=== PATIENT | female | born 1970 | race Two or more races ===

== ENCOUNTER 2019-06-07 17:43 | Emergency (ER) | payer BC, OTHER ==
[~2019-06-07] VITALS: Ht 170.2 cm; Wt 83.9 kg
[2019-06-07 18:13] VITALS: BP 115/73
[2019-06-07] MEDS ORDERED: ACETAMINOPHEN 325 MG TABLET PO ONE (19:00)
[2019-06-07] MEDS ORDERED: IBUPROFEN 600 MG TABLET PO ONE ×2 (19:00→19:24)
[2019-06-07] MEDS ORDERED: ACETAMINOPHEN 325 MG TABLET ONE (19:24)
== END 2019-06-07 20:33 | disposition home or self-care (01) ==
LOC: ER 17:50
DX: M79.651 Pain in right thigh (principal); M54.5 Low back pain
CPT/HCPCS: 72170; 73502; 99283; A6403

== ENCOUNTER 2019-12-06 09:57 | Emergency (ER) | payer BC, OTHER ==
[~2019-12-06] VITALS: Ht 175.3 cm; Wt 77.1 kg
[2019-12-06 10:00] VITALS: BP 140/89
== END 2019-12-06 10:43 | disposition home or self-care (01) ==
LOC: ER 10:07
DX: J02.8 Acute pharyngitis due to other specified organisms (principal); R05 Cough; Z20.828 Contact with and (suspected) exposure to other viral communicable diseases
CPT/HCPCS: 36415

== ENCOUNTER 2020-01-05 03:22 | Emergency (ER) | payer BC, OTHER ==
[~2020-01-05] VITALS: Ht 170.2 cm; Wt 86.2 kg
--- NOTE | 2020-01-05 03:28 | NUR ---
pt is presented to the ER w/ c/o on and off left sided CP x 2 days. radiating to the left hand , pt a, ox4. ambulatory to bed 3. VSS. monitor applied.
--- NOTE | 2020-01-05 03:35 | NUR ---
at the bed side
--- NOTE | 2020-01-05 03:39 | NUR ---
XRAY AT BEDSIDE
--- NOTE | 2020-01-05 03:40 | NUR ---
GEMOLOGIST AT THE BED SIDE
--- NOTE | 2020-01-05 03:51 | NUR ---
RAC 18G INV LINE STARTED. BLOOD DRAWN AND SENT TO THE LAB
[2020-01-05 04:00] LABS: BASOPHILS % (AUTO) 0.6 % (0.0-2.0); HEMATOCRIT 41 % (33-45); HEMOGLOBIN 14.1 g/dL (11.5-14.8); LYMPHOCYTES # (AUTO) 1.7 /CMM (0.8-4.8); LYMPHOCYTES % (AUTO) 33.4 % (20.0-44.0); MEAN CORPUSCULAR HGB CONC 35 g/dl (31.0-36.0); MEAN CORPUSCULAR VOLUME 92 fL (82-100); MONOCYTES # (AUTO) 0.5 /CMM (0.1-1.30); MONOCYTES % (AUTO) 9.9 % (2.0-12.0); NEUTROPHILS # (AUTO) 2.7 /CMM (1.8-8.9); NEUTROPHILS % (AUTO) 52.1 % (43.0-81.0); PLATELET COUNT (AUTO) 259 /CMM (150-450); RED BLOOD CELL COUNT(AUTO) 4.41 MIL/uL (4.0-5.2); WHITE BLOOD COUNT (AUTO) 5.2 K/uL (4.3-11.0)
[2020-01-05 04:09] LABS: CALCIUM, SERUM 8.9 mg/dL (8.5-10.1); CARBON DIOXIDE 31 mmol/L (21-32); CHLORIDE 103 mmol/L (98-107); GLUCOSE 99 mg/dL (74-106); POTASSIUM 3.4 mmol/L (3.5-5.1); SODIUM SERUM 140 mmol/L (136-145); UREA NITROGEN, BLOOD 18 mg/dL (7-18)
[2020-01-05 04:10] LABS: MAGNESIUM 1.7 mg/dL (1.8-2.4)
[2020-01-05 04:42] LABS: THYROID STIMULATING HORMONE 8.392 uIU/mL (0.358-3.74)
--- NOTE | 2020-01-05 04:50 | NUR ---
at the bed side
[2020-01-05 05:10] VITALS: BP 118/74
--- NOTE | 2020-01-05 05:10 | NUR ---
Patient discharged to home in stable condition. Written and verbal after care instructions given. Patient verbalizes understanding of instruction.IV removed. Catheter intact and site benign. Pressure and 4x4 applied to site. No bleeding noted.
== END 2020-01-05 05:10 | disposition home or self-care (01) ==
LOC: ER 03:22
DX: R07.89 Other chest pain (principal); E03.9 Hypothyroidism, unspecified
CPT/HCPCS: 36415; 71045-TC; 80048-TC; 83735-TC; 84439-TC; 84443-TC; 84484-TC; 85025-TC

== ENCOUNTER 2020-05-17 05:37 | Emergency (ER) | payer BC, OTHER ==
[~2020-05-17] VITALS: Ht 170.2 cm; Wt 86.2 kg
--- NOTE | 2020-05-17 05:40 | NUR ---
PT BIBSELF C/O CHEST PAIN AND DIZZINESS. PT STATES SHE "GOT UP TOO FAST, FELT DIZZY AND NOTICED HEART RATE WAS SLOW" PT AAOX4. RESPIRATIONS EVEN AND UNLABORED. SKIN INTACT. VITAL SIGNS STABLE. NO ACUTE DISTRESS NOTED AT THIS TIME. PLACED ON CONTINUOUS ROLLER LEVELER AND PULSE OX, WILL CONTINUE TO MONITOR
--- NOTE | 2020-05-17 05:53 | NUR ---
started iv on left ac 20g, good blood return. blood drawn, informed lab for grape picker.
[2020-05-17 06:23] LABS: BASOPHILS % (AUTO) 0.6 % (0.0-2.0); EOSINOPHILS % (AUTO) 5.4 % (0.0-6.0); HEMATOCRIT 45 % (33-45); HEMOGLOBIN 15.2 g/dL (11.5-14.8); LYMPHOCYTES # (AUTO) 1.7 /CMM (0.8-4.8); LYMPHOCYTES % (AUTO) 39.3 % (20.0-44.0); MEAN CORPUSCULAR HGB CONC 34 g/dl (31.0-36.0); MEAN CORPUSCULAR VOLUME 93 fL (82-100); MONOCYTES # (AUTO) 0.4 /CMM (0.1-1.30); MONOCYTES % (AUTO) 9.3 % (2.0-12.0); NEUTROPHILS % (AUTO) 45.4 % (43.0-81.0); PLATELET COUNT (AUTO) 243 /CMM (150-450); RED BLOOD CELL COUNT(AUTO) 4.82 MIL/uL (4.0-5.2); WHITE BLOOD COUNT (AUTO) 4.3 K/uL (4.3-11.0)
--- NOTE | 2020-05-17 06:25 | NUR ---
RADIOLOGY AT BEDSIDE FOR CXR
[2020-05-17 06:46] LABS: CALCIUM, SERUM 9.4 mg/dL (8.5-10.1); CARBON DIOXIDE 28 mmol/L (21-32); CHLORIDE 102 mmol/L (98-107); CREATININE 0.8 mg/dL (0.6-1.3); GLUCOSE 96 mg/dL (74-106); POTASSIUM 3.6 mmol/L (3.5-5.1); SODIUM SERUM 140 mmol/L (136-145); UREA NITROGEN, BLOOD 13 mg/dL (7-18)
[2020-05-17 06:54] LABS: ALANINE AMINOTRANSFERASE 66 U/L (12-78); ALBUMIN 4.2 g/dL (3.4-5.0); ALKALINE PHOSPHATASE 114 U/L (46-116); ASPARTATE AMINOTRANSFERASE 35 U/L (15-37); BILIRUBIN,DIRECT 0.1 mg/dL (0.0-0.2); BILIRUBIN,TOTAL 0.5 mg/dL (0.2-1.0); TOTAL PROTEIN, SERUM 8.6 g/dL (6.4-8.2)
[2020-05-17 07:20] VITALS: BP 138/81
== END 2020-05-17 07:20 | disposition home or self-care (01) ==
LOC: ER 05:38
DX: R42 Dizziness and giddiness (principal); R07.89 Other chest pain; R03.0 Elevated blood-pressure reading, without diagnosis of hypertension
CPT/HCPCS: 36415; 71045-TC; 80048-TC; 80076-TC; 84484-TC; 85025-TC

== ENCOUNTER 2020-06-14 18:56 | Emergency (ER) | payer BC, OTHER ==
[~2020-06-14] VITALS: Ht 167.6 cm; Wt 90.3 kg
--- NOTE | 2020-06-14 19:02 | NUR ---
pt aox4. with c/o chest pain of 8/10 non radiating since last night. also states it is painful when inspiring. per pt, she took ASA 81mg this morning. no c/o n/v. no diaphoresis noted. v/s within normal limits. put pt on gown. awaiting for md barber. will continue to monitor
--- NOTE | 2020-06-14 19:10 | NUR ---
iv line established. blood drawn and sent to lab
--- NOTE | 2020-06-14 19:22 | NUR ---
AT BED SIDE
--- NOTE | 2020-06-14 19:25 | NUR ---
ECG TECH AT BED SIDE
[2020-06-14] MEDS ORDERED: PANTOPRAZOLE 40 MG VIAL IV ONE (19:30)
[2020-06-14] MEDS ORDERED: KETOROLAC TROMETHAMINE INJ 30 MG/ML VIAL IV ONE (19:30)
--- NOTE | 2020-06-14 19:41 | NUR ---
X RAY AT BED SIDE
[2020-06-14] MEDS ORDERED: KETOROLAC TROMETHAMINE 15 MG/ML VIAL ONE (19:43)
[2020-06-14] MEDS ORDERED: PANTOPRAZOLE 40 MG VIAL ONE (19:43)
[2020-06-14 19:51] LABS: BASOPHILS % (AUTO) 0.3 % (0.0-2.0); EOSINOPHILS % (AUTO) 2.8 % (0.0-6.0); HEMATOCRIT 44 % (33-45); HEMOGLOBIN 14.5 g/dL (11.5-14.8); LYMPHOCYTES # (AUTO) 1.4 /CMM (0.8-4.8); MEAN CORPUSCULAR HGB CONC 33 g/dl (31.0-36.0); MEAN CORPUSCULAR VOLUME 93 fL (82-100); MONOCYTES # (AUTO) 0.6 /CMM (0.1-1.30); NEUTROPHILS # (AUTO) 4.3 /CMM (1.8-8.9); NEUTROPHILS % (AUTO) 65.9 % (43.0-81.0); PLATELET COUNT (AUTO) 265 /CMM (150-450); RED BLOOD CELL COUNT(AUTO) 4.67 MIL/uL (4.0-5.2); WHITE BLOOD COUNT (AUTO) 6.6 K/uL (4.3-11.0)
[2020-06-14 19:54] LABS: CALCIUM, SERUM 8.8 mg/dL (8.5-10.1); CARBON DIOXIDE 31 mmol/L (21-32); CHLORIDE 103 mmol/L (98-107); CREATININE 0.8 mg/dL (0.6-1.3); GLUCOSE 79 mg/dL (74-106); POTASSIUM 3.6 mmol/L (3.5-5.1); SODIUM SERUM 140 mmol/L (136-145); UREA NITROGEN, BLOOD 12 mg/dL (7-18)
--- NOTE | 2020-06-14 20:35 | NUR ---
AT BED SIDE
--- NOTE | 2020-06-14 20:49 | NUR ---
IV removed. Catheter intact and site benign. Pressure and 4x4 applied to site. No bleeding noted.
--- NOTE | 2020-06-14 20:56 | NUR ---
pt is medically stable for D/C. Patient discharged to home in stable condition. Rx and Written and verbal after care instructions given. Patient verbalizes understanding of instruction.
[2020-06-14 20:59] VITALS: BP 94/65
== END 2020-06-14 20:59 | disposition home or self-care (01) ==
LOC: ER 18:59
DX: R07.89 Other chest pain (principal); Z90.49 Acquired absence of other specified parts of digestive tract
CPT/HCPCS: 36415; 71045; 80048; 84484; 85025; 93005 ×2; 96374; 96375; 99285; C9113; J1885